=== PATIENT | male | born 1960 | race Hispanic/Latino ===

== ENCOUNTER 2021-08-10 13:00 | Inpatient (IN) | payer OTHER, BC ==
[2021-08-10] MEDS ORDERED: Ondansetron PF 4 MG/2 ML Vial ONE (13:18)
[2021-08-10] MEDS ORDERED: Fentanyl 100 MCG/2 ML VIAL ONE (13:18)
[2021-08-10 13:32] LABS: #Eosinphils 0.1 thou/uL (0.0-0.7); #Lymphocytes 2.8 thou/uL (1.20-3.40); #Monocytes 0.6 thou/uL (0.11-0.59); #Neutrophils 7.7 thou/uL (1.40-6.50); %Basophils 0.1 % (0.0-1.0); %Eosinophils 0.7 % (0.0-10.0); %Lymphocytes 24.9 % (21.0-51.0); %Monocytes 4.9 % (0.0-10.0); %Neutrophils 69.4 % (42.0-75.0); Hemoglobin 17.2 g/dL (14.0-18.0); Mean Corpuscular HGB CONC 33.4 g/dL (32.0-36.0); Mean Corpuscular Hemoglobin 29.8 pg (27.0-31.0); Mean Corpuscular Volume 89.4 fL (78.0-98.0); Mean Platelet Volume 7.6 fL (7.4-10.4); Platelet Count 304 thou/uL (130-400); RBC Distribution Width 12.3 % (11.5-14.5); Red Blood Cell (RBC) Count 5.77 mill/uL (4.70-6.10); White Blood Cell (WBC) Count 11.1 thou/uL (4.8-10.8)
[2021-08-10 13:42] LABS: Prothrombin Time 12.8 sec (12.0-14.7)
[2021-08-10 13:43] LABS: PTT 30.1 sec (22.9-36.1)
[2021-08-10 13:54] LABS: ALT (SGPT) 58 U/L (8-55); AST (SGOT) 75 U/L (5-34); Albumin 4.2 g/dL (3.5-5.0); Alkaline Phosphatase 114 U/L (40-110); Anion Gap 20 mmol/L (10-20); BUN (Urea Nitrogen) 21 mg/dL (8.4-25.7); Bilirubin, Total 0.8 mg/dL (0.2-1.2); Calc. Creatinine Clearance 0 mL/min (70-130); Calcium 10.3 mg/dL (7.8-10.44); Carbon Dioxide 18 mmol/L (22-29); Chloride 99 mmol/L (98-107); Globulin 3.3 g/dL (2.4-3.5); Glucose 457 mg/dL (70-105); Potassium 3.9 mmol/L (3.5-5.1); Protein, Total 7.5 g/dL (6.0-8.3); Sodium 133 mmol/L (136-145)
[2021-08-10] MEDS ORDERED: Morphine 4 MG/ML VIAL ONE (14:10)
[2021-08-10] MEDS ORDERED: Iopamidol-370 76% 500 ML 1 ML ONE (14:52)
[2021-08-10] MEDS ORDERED: Acetaminophen 500 MG TAB ONE (15:19)
[2021-08-10] MEDS ORDERED: Morphine 2 MG/ML VIAL SLOW IVP PRN (17:43)
[2021-08-10] MEDS ORDERED: Dextrose 50% Abboject 50 ML SYRINGE SLOW IVP PRN (17:43)
[2021-08-10] MEDS ORDERED: Dextrose 5% in Water 1,000 ML IV PRN (17:43)
[2021-08-10] MEDS ORDERED: Ketorolac Tromethamine 30 MG/ML VIAL ONE (17:45)
[2021-08-10] MEDS ORDERED: Rib Fracture Protocol PO PRN (17:45)
[2021-08-10 18:31] LABS: Magnesium 1.8 mg/dL (1.6-2.6)
[2021-08-10] MEDS: Acetaminophen 500 MG TAB PO SCH (19:37)
[2021-08-10] MEDS: traMADol HCl 50 MG TAB PO SCH (19:39)
[2021-08-10] MEDS: Insulin Glargine 30 UNITS/0.3 ML VIAL SC SCH (20:31)
[2021-08-10] MEDS: Famotidine 20 MG TAB PO SCH (20:31)
[2021-08-10] MEDS: Gabapentin 300 MG CAP PO SCH (20:31)
[2021-08-10 20:50] VITALS: BMI 28.3
[2021-08-10] MEDS ORDERED: Gabapentin 300 MG CAP PO SCH (21:00)
[2021-08-10] MEDS: Ibuprofen 200 MG TAB PO SCH (21:08)
[2021-08-10] MEDS ORDERED: Ibuprofen 200 MG TAB PO SCH (22:00)
[2021-08-11] MEDS: traMADol HCl 50 MG TAB PO SCH ×5 (00:23→23:52)
[2021-08-11] MEDS: Acetaminophen 500 MG TAB PO SCH ×5 (00:24→23:52)
[2021-08-11 05:24] LABS: #Basophils 0.1 thou/uL (0.0-0.2); #Eosinphils 0.1 thou/uL (0.0-0.7); #Lymphocytes 2.7 thou/uL (1.20-3.40); #Monocytes 1.1 thou/uL (0.11-0.59); #Neutrophils 6.3 thou/uL (1.40-6.50); %Basophils 0.7 % (0.0-1.0); %Eosinophils 1.2 % (0.0-10.0); %Lymphocytes 26.5 % (21.0-51.0); %Monocytes 10.3 % (0.0-10.0); %Neutrophils 61.2 % (42.0-75.0); Hemoglobin 15.1 g/dL (14.0-18.0); Mean Corpuscular HGB CONC 33.4 g/dL (32.0-36.0); Mean Corpuscular Hemoglobin 30.2 pg (27.0-31.0); Mean Corpuscular Volume 90.4 fL (78.0-98.0); Mean Platelet Volume 7.2 fL (7.4-10.4); Platelet Count 246 thou/uL (130-400); RBC Distribution Width 12.4 % (11.5-14.5); Red Blood Cell (RBC) Count 5.01 mill/uL (4.70-6.10); White Blood Cell (WBC) Count 10.3 thou/uL (4.8-10.8)
[2021-08-11] MEDS: Ibuprofen 200 MG TAB PO SCH ×3 (05:29→21:16)
[2021-08-11 05:52] LABS: Anion Gap 12 mmol/L (10-20); BUN (Urea Nitrogen) 17 mg/dL (8.4-25.7); Calc. Creatinine Clearance 105 mL/min (70-130); Calcium 8.5 mg/dL (7.8-10.44); Carbon Dioxide 24 mmol/L (22-29); Chloride 101 mmol/L (98-107); Glucose 317 mg/dL (70-105); Phosphorus 3.7 mg/dL (2.3-4.7); Sodium 133 mmol/L (136-145)
[2021-08-11] MEDS: HumaLOG 300 UNITS/3 ML VIAL SC PRN ×3 (06:38→17:20)
[2021-08-11] MEDS: Gabapentin 300 MG CAP PO SCH ×3 (08:28→21:19)
[2021-08-11] MEDS: Famotidine 20 MG TAB PO SCH ×2 (08:29→21:16)
[2021-08-11] MEDS: Insulin Glargine 30 UNITS/0.3 ML VIAL SC SCH ×2 (10:39→21:15)
[2021-08-11] MEDS ORDERED: Ondansetron ORAL SOLN. 4 MG/5 ML UDCUP PO PRN (13:31)
[2021-08-11 15:50] LABS: SARS-CoV-2 PCR by NAA Not Detected (NotDetected)
[2021-08-12] MEDS: Cyclobenzaprine 10 MG TAB PO PRN ×2 (04:25→20:36)
[2021-08-12] MEDS: Ibuprofen 200 MG TAB PO SCH ×3 (06:17→20:37)
[2021-08-12] MEDS: traMADol HCl 50 MG TAB PO SCH ×3 (06:18→17:17)
[2021-08-12] MEDS: Acetaminophen 500 MG TAB PO SCH ×3 (06:19→17:17)
[2021-08-12] MEDS: HumaLOG 300 UNITS/3 ML VIAL SC PRN ×3 (06:20→21:22)
[2021-08-12] MEDS: Gabapentin 300 MG CAP PO SCH ×3 (09:15→20:36)
[2021-08-12] MEDS: Famotidine 20 MG TAB PO SCH ×2 (09:15→20:37)
[2021-08-12] MEDS: Insulin Glargine 30 UNITS/0.3 ML VIAL SC SCH ×2 (09:15→20:38)
[2021-08-12] MEDS ORDERED: guaiFENesin ER 600 MG TAB PO SCH (22:00)
[2021-08-13] MEDS: traMADol HCl 50 MG TAB PO SCH ×3 (00:13→12:32)
[2021-08-13] MEDS: Acetaminophen 500 MG TAB PO SCH ×3 (00:14→12:32)
[2021-08-13] MEDS: Cyclobenzaprine 10 MG TAB PO PRN ×3 (04:40→21:16)
[2021-08-13] MEDS: HumaLOG 300 UNITS/3 ML VIAL SC PRN ×2 (05:50→21:16)
[2021-08-13] MEDS: Ibuprofen 200 MG TAB PO SCH (05:53)
[2021-08-13] MEDS: Gabapentin 300 MG CAP PO SCH ×3 (08:19→21:13)
[2021-08-13] MEDS: Famotidine 20 MG TAB PO SCH ×2 (08:20→21:14)
[2021-08-13] MEDS: Enoxaparin Sodium 40 MG/0.4 ML SYRINGE SC SCH (08:20)
[2021-08-13] MEDS: Insulin Glargine 30 UNITS/0.3 ML VIAL SC SCH ×2 (08:21→21:15)
[2021-08-13] MEDS: guaiFENesin ER 600 MG TAB PO SCH ×2 (08:21→21:12)
[2021-08-13] MEDS ORDERED: Senokot 8.6 MG TAB PO PRN (12:10)
[2021-08-13] MEDS ORDERED: traMADol HCl 50 MG TAB PO PRN (12:52)
[2021-08-13] MEDS: Acetaminophen/Codeine 30-300mg Tablet PO SCH ×2 (17:06→23:38)
[2021-08-13] MEDS: Ketorolac Tromethamine 30 MG/ML VIAL IVP SCH ×2 (17:06→23:37)
[2021-08-13] MEDS: metFORMIN 500 MG TAB PO SCH (17:06)
[2021-08-13] MEDS: Atorvastatin Calcium 40 MG TAB PO SCH (21:14)
[2021-08-14] MEDS: Ketorolac Tromethamine 30 MG/ML VIAL IVP SCH ×3 (05:07→17:06)
[2021-08-14] MEDS: HumaLOG 300 UNITS/3 ML VIAL SC PRN ×2 (05:08→20:54)
[2021-08-14] MEDS: Acetaminophen/Codeine 30-300mg Tablet PO SCH ×4 (05:10→23:51)
[2021-08-14] MEDS ORDERED: Magnesium Citrate 300 ML BOT PO SCH (06:45)
[2021-08-14] MEDS: guaiFENesin ER 600 MG TAB PO SCH ×2 (08:44→20:50)
[2021-08-14] MEDS: metFORMIN 500 MG TAB PO SCH ×2 (08:44→17:06)
[2021-08-14] MEDS: Famotidine 20 MG TAB PO SCH ×2 (08:45→20:50)
[2021-08-14] MEDS: Gabapentin 300 MG CAP PO SCH ×3 (08:45→20:50)
[2021-08-14] MEDS: Insulin Glargine 30 UNITS/0.3 ML VIAL SC SCH ×2 (08:46→20:52)
[2021-08-14] MEDS: Enoxaparin Sodium 40 MG/0.4 ML SYRINGE SC SCH (08:47)
[2021-08-14] MEDS: Polyethylene Glycol 3350 17 GM Packet PO SCH (08:48)
[2021-08-14] MEDS: Cyclobenzaprine 10 MG TAB PO PRN ×2 (08:51→20:50)
[2021-08-14] MEDS: Ibuprofen 200 MG TAB PO PRN (20:49)
[2021-08-14] MEDS: Atorvastatin Calcium 40 MG TAB PO SCH (20:50)
[2021-08-15] MEDS: Acetaminophen/Codeine 30-300mg Tablet PO SCH ×3 (05:58→18:41)
[2021-08-15] MEDS: HumaLOG 300 UNITS/3 ML VIAL SC PRN ×3 (05:59→21:18)
[2021-08-15] MEDS: Gabapentin 300 MG CAP PO SCH ×3 (07:25→21:28)
[2021-08-15] MEDS: Insulin Glargine 30 UNITS/0.3 ML VIAL SC SCH ×2 (07:25→21:19)
[2021-08-15] MEDS: Polyethylene Glycol 3350 17 GM Packet PO SCH (07:27)
[2021-08-15] MEDS: Famotidine 20 MG TAB PO SCH ×2 (07:27→18:41)
[2021-08-15] MEDS: metFORMIN 500 MG TAB PO SCH ×2 (07:27→16:23)
[2021-08-15] MEDS: guaiFENesin ER 600 MG TAB PO SCH ×2 (07:27→21:21)
[2021-08-15] MEDS: Enoxaparin Sodium 40 MG/0.4 ML SYRINGE SC SCH (07:27)
[2021-08-15] MEDS ORDERED: Ketorolac Tromethamine 30 MG/ML VIAL IVP SCH (09:00)
[2021-08-15] MEDS ORDERED: Magnesium Citrate 300 ML BOT PO SCH (12:27)
[2021-08-15] MEDS ORDERED: Bisacodyl 10 MG SUPP PR PRN (12:28)
[2021-08-15] MEDS ORDERED: Mineral Oil ENEMA PR SCH (16:00)
[2021-08-15] MEDS ORDERED: Calcium Carbonate 500 MG ChewTAB PO PRN (17:53)
[2021-08-15] MEDS: Cyclobenzaprine 10 MG TAB PO PRN (18:41)
[2021-08-15] MEDS: Atorvastatin Calcium 40 MG TAB PO SCH (21:21)
[2021-08-16] MEDS: Acetaminophen/Codeine 30-300mg Tablet PO SCH ×3 (00:18→05:35)
[2021-08-16 05:30] VITALS: BP 121/81; TEMP 98
[2021-08-16] MEDS: Ibuprofen 200 MG TAB PO PRN (05:50)
[2021-08-16] MEDS: Enoxaparin Sodium 40 MG/0.4 ML SYRINGE SC SCH (07:32)
[2021-08-16] MEDS: guaiFENesin ER 600 MG TAB PO SCH (07:33)
[2021-08-16] MEDS: Famotidine 20 MG TAB PO SCH (07:33)
[2021-08-16] MEDS: metFORMIN 500 MG TAB PO SCH (07:33)
== END 2021-08-16 08:37 | disposition home or self-care (01) | DRG 206 ==
LOC: ERS 13:00 → SJJU 15:58
PROVIDERS: ADMIT Student in an Organized Health Care Education/Training Program; ATTEND Surgery
DX: S27.322A Contusion of lung, bilateral, initial encounter (principal); S22.43XA Multiple fractures of ribs, bilateral, initial encounter for closed fracture; Z20.822 Contact with and (suspected) exposure to COVID-19; V49.9XXA Car occupant (driver) (passenger) injured in unspecified traffic accident, initial encounter; I10 Essential (primary) hypertension; E78.5 Hyperlipidemia, unspecified; E11.65 Type 2 diabetes mellitus with hyperglycemia; Z79.84 Long term (current) use of oral hypoglycemic drugs
CPT/HCPCS: 36415; 36416; 70450; 70498; 71045; 71260; 72125; 74177; 80048; 80053; 83735; 84100; 85025; 85610; 85730; 86850; 86900; 86901; 94640; 96374; 96375; G0390; J1650; J1815; J1885; J2270; J2405; J3010; J7620; Q0162; Q9967; U0003; U0005